=== PATIENT | female | born 1975 | race African-American/Black ===

== ENCOUNTER 2019-11-28 08:41 | Emergency (ER) | payer OTHER ==
[~2019-11-28] VITALS: Ht 170.2 cm; Wt 117.9 kg
[2019-11-28] MEDS ORDERED: NOHOMEMEDICATIONS (08:58)
[2019-11-28 09:33] LABS: HEMATOCRIT 49.8 % (37.0-47.0); MCH 33.8 pg (26.0-34.0); MCHC 34.2 g/dL (28.0-37.0); MCV 98.9 fL (80.0-100.0); PLATELET COUNT 158 thou/uL (150-400); RBC 5.04 mil/uL (4.20-5.00); RDW 14.8 % (10.5-14.5); WBC 3.8 thou/uL (4.0-11.0)
[2019-11-28 09:38] LABS: ANION GAP 8 mmol/L (7-16); BUN 9 mg/dL (7-18); CALCIUM 8.5 mg/dL (8.5-10.1); CHLORIDE 99 mmol/L (98-107); CO2 27 mmol/L (21-32); GLUCOSE 119 mg/dL (74-106); POTASSIUM 3.4 mmol/L (3.5-5.1); SODIUM 134 mmol/L (136-145)
[2019-11-28 09:46] LABS: LIPASE 121 U/L (73-393); TROPONIN-I <0.06 ng/mL (<0.06)
[2019-11-28] MEDS ORDERED: ZOFRAN ODT4 MG PO (12:17)
[2019-11-28 12:25] VITALS: BP 152/81
[2019-11-28 13:22] LABS: ABSOLUTE NEUTROPHILS 2.2 thou/uL (1.4-8.2); ATYPICAL LYMPHS 3 %
[2019-11-28 13:23] LABS: LARGE PLATELETS OCCASIONAL
--- NOTE | 2019-11-28 15:40 | EKG ---
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
== END 2019-11-28 12:30 | disposition home or self-care (01) ==
LOC: ER 08:41
PROVIDERS: Emergency Medicine
DX: R05 Cough (principal); R06.02 Shortness of breath; F17.210 Nicotine dependence, cigarettes, uncomplicated; Z20.828 Contact with and (suspected) exposure to other viral communicable diseases

== ENCOUNTER 2020-10-03 19:44 | Emergency (ER) | payer OTHER ==
[~2020-10-03] VITALS: Ht 170.2 cm; Wt 111.1 kg
[~2020-10-03 19:44] MED LIST: NOHOMEMEDICATIONS; ZOFRAN ODT4 MG PO
[2020-10-03 20:05] LABS: ABSOLUTE NEUTROPHILS 3.9 thou/uL (1.4-8.2); BASOPHILS 1.7 % (0.0-2.0); EOSINOPHILS 0.8 % (0.0-3.0); HEMATOCRIT 52.4 % (37.0-47.0); HEMOGLOBIN 17.8 gm/dL (12.0-15.0); LYMPHOCYTES 39.1 % (24.0-44.0); MCH 33.9 pg (26.0-34.0); MCV 99.8 fL (80.0-100.0); MONOCYTES 9.1 % (1.0-8.0); PLATELET COUNT 271 thou/uL (150-400); POLYS 49.3 % (36.0-66.0); RBC 5.25 mil/uL (4.20-5.00)
[2020-10-03 20:14] LABS: ANION GAP 11 mmol/L (7-16); BUN 9 mg/dL (7-18); CALCIUM 9.5 mg/dL (8.5-10.1); CHLORIDE 103 mmol/L (98-107); CO2 27 mmol/L (21-32); CREATININE 1.1 mg/dL (0.6-1.0); GLUCOSE 106 mg/dL (74-106); POTASSIUM 3.3 mmol/L (3.5-5.1); SODIUM 141 mmol/L (136-145)
[2020-10-03 20:21] LABS: URINE BLOOD 3+ (Negative); URINE CLARITY CLEAR; URINE COLOR YELLOW; URINE GLUCOSE-RANDOM* NEGATIVE (Negative); URINE KETONES TRACE (Negative); URINE PROTEIN (DIPSTICK) 2+ (Negative); URINE SPECIFIC GRAVITY >= 1.030 (1.005-1.035)
[2020-10-03 20:25] LABS: ALBUMIN 3.2 g/dL (3.4-5.0); AMYLASE 60 U/L (25-115); DIRECT BILIRUBIN < 0.1 mg/dL (<0.1-0.2); LIPASE 143 U/L (73-393); MAGNESIUM 2.2 mg/dL (1.8-2.4); PHOSPHORUS 3.1 mg/dL (2.6-4.7); SGOT 21 U/L (15-37); SGPT 23 U/L (14-59); TOTAL BILIRUBIN 0.3 mg/dL (0.2-1.0); TOTAL PROTEIN 8.3 g/dL (6.4-8.2); TROPONIN-I <0.06 ng/mL (<0.06)
[2020-10-03 20:26] LABS: ICTOTEST (BILI CONFIRMATORY) Negative (Negative); URINE BILIRUBIN NEGATIVE (Negative); URINE LEUKOCYTES-REFLEX 1+ (Negative); URINE NITRITE-REFLEX POSITIVE (Negative)
[2020-10-03 20:35] LABS: HYALINE CASTS 4-10 Moderate /LPF (None Seen); MUCUS >6 Heavy strn/LPF (None Seen); SQUAMOUS >10 Many /LPF (0-3); URINE RBC 1-2 Rare /HPF (NONE SEEN); URINE WBC-REFLEX >25 Many /HPF (0-5)
[2020-10-03 20:36] LABS: CRYSTALS None Seen /LPF (None Seen)
[2020-10-03] MEDS ORDERED: XANAX 1 MG TABLE1 MG PO (20:52)
[2020-10-03] MEDS ORDERED: NAPROSYN500 MG PO (20:52)
[2020-10-03 20:59] VITALS: BP 129/69
--- NOTE | 2020-10-04 06:48 | EKG ---
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
[2020-10-07] MEDS ORDERED: CEPHALEXIN500 MG PO (09:42)
== END 2020-10-03 21:15 | disposition home or self-care (01) ==
LOC: ER 19:44
PROVIDERS: Emergency Medicine
DX: R07.89 Other chest pain (principal); R00.0 Tachycardia, unspecified; F41.1 Generalized anxiety disorder; F17.210 Nicotine dependence, cigarettes, uncomplicated; E66.9 Obesity, unspecified; Z68.38 Body mass index [BMI] 38.0-38.9, adult